=== PATIENT | female | born 1985 | race Caucasian/White ===

== ENCOUNTER 2017-03-08 14:09 | Emergency (ER) | payer OTHER ==
[2017-03-08 14:30] VITALS: BP 126/80; PULSE 62; TEMP 98; BMI 20.7
[2017-03-08 14:31] LABS: URINE APPEARANCE Clear; URINE BILIRUBIN Negative (NEGATIVE); URINE GLUCOSE (UA) Negative (NEGATIVE); URINE KETONE Negative (NEGATIVE); URINE LEUK ESTERASE Negative (NEGATIVE); URINE NITRITE Negative (NEGATIVE); URINE PROTEIN Negative (NEGATIVE); URINE UROBILINOGEN 0.2 E.U/dl (0.2-1.0)
[2017-03-08] MEDS ORDERED: SULFAMETHOXAZOLE/TRIMETHOPRIM 800MG/160MG D.S. TABLET PO ONE (14:35)
[2017-03-08] MEDS ORDERED: FLUCONAZOLE 50 MG TABLET PO ONE (14:35)
[2017-03-08 14:37] LABS: URINE BLOOD 2+ (NEGATIVE); URINE COLOR YELLOW
[2017-03-08] MEDS ORDERED: FLUCONAZOLE 150 MG TABLET PO ONE (14:49)
[2017-03-08] MEDS ORDERED: SULFAMETHOXAZOLE/TRIMETHOPRIM 800MG/160MG D.S. TABLET ONE (14:50)
--- NOTE | 2017-03-08 14:59 | PDOC ---
History of Present Illness - General Chief Complaint: Urinary Problem Stated Complaint: UTI Time Seen by Provider: 03/08/17 14:11 History Source: Patient Exam Limitations: No Limitations - History of Present Illness Travel History: No Past History - Past Medical History Allergies/Adverse Reactions: Allergies Allergy/AdvReac Type Severity Reaction Status Date / Time No Known Allergies Allergy Verified 03/08/17 14:17 Home Medications: Ambulatory Orders Albuterol Sulfate Inhaler - [Ventolin HFA Inhaler -] 2 puff IH Q4H #1 inhaler NS 03/08/17 Albuterol Sulfate Inhaler - [Ventolin Hfa Inhaler -] 2 inh PO Q6H PRN 03/08/17 Ciprofloxacin HCl [Cipro] 500 mg PO BID 03/08/17 Fluconazole [Diflucan -] 100 mg PO ONCE #2 tablet 03/08/17 Phenazopyridine HCl [Pyridium] 200 mg PO TID PRN 03/08/17 Sulfamethoxazole/Trimethoprim [Bactrim Ds Tablet] 1 each PO BID #14 tablet 03/08 Other medical history: SCOLIOSIS - Psycho/Social/Smoking Cessation Hx Anxiety: No Suicidal Ideation: No Smoking History: Never smoked Hx Alcohol Use: Yes (RARE) Drug/Substance Use Hx: No Substance Use Type: None *Physical Exam - Vital Signs Last Vital Signs Temp Pulse Resp BP Pulse Ox 98.0 F 62 15 126/80 100 03/08/17 14:10 03/08/17 14:10 03/08/17 14:10 03/08/17 14:10 03/08/17 14:10 ED Treatment Course - ADDITIONAL ORDERS Additional order review: Laboratory Results 03/08/17 14:00 Urine Color Yellow Urine Appearance Clear Urine pH 6.0 Ur Specific [place] <= 1.005 Urine Protein Negative Urine Glucose (UA) Negative Urine Ketones Negative Urine Blood 2+ H Urine Nitrite Negative Urine Bilirubin Negative Urine Urobilinogen 0.2 e.u/dl Ur Leukocyte Esterase Negative Urine HCG, Qual Negative Medical Decision Making - Medical Decision Making 03/08/17 14:46 31 yo F with h/o frequent uti, last 5 yrs ago, here wtih c/o dysuria, frequency , urgency. started one week ago, has been taking cipro no relief and pyridium. no f/c no n/v has chronic back pain . no changes. also c;o vaginal itching since initiating abx, is currently menstruating. not . on exam awake alert well appearing. cardiac and lung exam normal. abd soft NT no CVA tenderness. differential: vaginal candidiasis, uti . will switch pt abx to bactrim. cultures sent. no sx of pyelo or sepsis currently afebrile not tachycardic. will r/o . treat for yeast with diflucan. 03/08/17 15:02 cultures sent. pt switched to urine . *DC/Admit/Observation/Transfer Diagnosis at time of Disposition: Vaginal candidiasis - Discharge Dispostion Disposition: HOME Condition at time of disposition: Good Admit: No - Prescriptions Prescriptions: Sulfamethoxazole/Trimethoprim [Bactrim Ds Tablet] 1 each PO BID #14 tablet Fluconazole [Diflucan -] 100 mg PO ONCE #2 tablet - Referrals Referrals: Jim Wade MD [Staff Physician] - - Patient Instructions Printed Discharge Instructions: Urinary Tract Infection, Fluconazole Additional Instructions: take bactrim twice daily x 7 days. discontinue ciprofloxacin. you can take a repeat dose of diflucan to help vaginal itching in 2 days if todays medicine does not help. follow up with your primary doctor. return for any fever, chills vomiting or any concerns.
--- NOTE | 2017-03-08 15:05 | PDOC ---
*Physical Exam - Vital Signs Last Vital Signs Temp Pulse Resp BP Pulse Ox 98.0 F 62 15 126/80 100 03/08/17 14:10 03/08/17 14:10 03/08/17 14:10 03/08/17 14:10 03/08/17 14:10 <Leatha Mtz - Last Filed: 03/08/17 15:04> - Vital Signs Last Vital Signs Temp Pulse Resp BP Pulse Ox 98.0 F 62 15 126/80 100 03/08/17 14:10 03/08/17 14:10 03/08/17 14:10 03/08/17 14:10 03/08/17 14:10 - Physical Exam Comments: 03/08/17 15:05 The patient is a 31 year old female with a significant past medical history of recurrent UTIs (last one several years ago) and chronic back pain who presents to the ED with complaints of dysuria for several days. The patient reports dysuria, vaginal discharge, and vaginal itching. She also reports lower back pain and nausea associated with present symptoms. She states she typically gets similar symptoms 3-4 times a year, and drinks water and cranberry juice with relief. Patient reports she is on Cipro for a week with no improvement. Patient is currently on her menstrual period. Denies fevers or chills. Denies abdominal pain, vomiting, or diarrhea. Denies chest pain or shortness of breath. Denies any other symptoms. GENERAL/CONSTITUTIONAL: No fever or chills. No weakness. HEAD, EYES, EARS, NOSE AND THROAT: No change in vision. No ear pain or discharge. No sore throat. CARDIOVASCULAR: No chest pain or shortness of breath. RESPIRATORY: No cough, wheezing, or hemoptysis. GASTROINTESTINAL: + nausea. No vomiting, diarrhea or constipation. GENITOURINARY:+ dysuria, vaginal discharge, vaginal itching. No frequency. MUSCULOSKELETAL:+ back pain. No joint or muscle swelling or pain. No neck pain. SKIN: No rash NEUROLOGIC: No headache, vertigo, loss of consciousness, or change in strength/ sensation. ENDOCRINE: No increased thirst. No abnormal weight change. HEMATOLOGIC/LYMPHATIC: No anemia, easy bleeding, or history of blood clots. ALLERGIC/IMMUNOLOGIC: No hives or skin allergy. GENERAL: Awake, alert, and fully oriented, in no acute distress HEAD: No signs of trauma EYES: PERRLA, EOMI, sclera anicteric, conjunctiva clear ENT: Auricles normal inspection, hearing grossly normal, nares patent, oropharynx clear without exudates. Moist mucosa NECK: Normal ROM, supple, no lymphadenopathy, JVD, or masses LUNGS: Breath sounds equal, clear to auscultation bilaterally. No wheezes, and no crackles HEART: Regular rate and rhythm, normal S1 and S2, no murmurs, rubs or gallops ABDOMEN: Soft, nontender, normoactive bowel sounds. No guarding, no rebound. No masses MUSCULOSKELETAL: No CVA tenderness. EXTREMITIES: Normal range of motion, no edema. No clubbing or cyanosis. No cords, erythema, or tenderness NEUROLOGICAL: Normal speech SKIN: Warm, Dry, normal turgor, no rashes or lesions noted. <Nehemias Farfan - Last Filed: 03/08/17 15:05> ED Treatment Course - ADDITIONAL ORDERS Additional order review: Laboratory Results 03/08/17 14:00 Urine Color Yellow Urine Appearance Clear Urine pH 6.0 Ur Specific [place] <= 1.005 Urine Protein Negative Urine Glucose (UA) Negative Urine Ketones Negative Urine Blood 2+ H Urine Nitrite Negative Urine Bilirubin Negative Urine Urobilinogen 0.2 e.u/dl Ur Leukocyte Esterase Negative Urine HCG, Qual Negative - Medications Given in the ED: ED Medications Discontinued Medications Generic Name Dose Route Start Last Admin Trade Name Freq PRN Reason Stop Dose Admin Fluconazole 150 mg 03/08/17 14:35 03/08/17 14:53 Diflucan - PO 03/08/17 14:36 150 mg ONCE ONE Administration Trimethoprim/Sulfamethoxazole 1 each 03/08/17 14:35 03/08/17 14:53 Bactrim Ds - PO 03/08/17 14:36 1 each ONCE ONE Administration <Juliocesar Mtza - Last Filed: 03/08/17 15:04> - ADDITIONAL ORDERS Additional order review: Laboratory Results 03/08/17 14:00 Urine Color Yellow Urine Appearance Clear Urine pH 6.0 Ur Specific [place] <= 1.005 Urine Protein Negative Urine Glucose (UA) Negative Urine Ketones Negative Urine Blood 2+ H Urine Nitrite Negative Urine Bilirubin Negative Urine Urobilinogen 0.2 e.u/dl Ur Leukocyte Esterase Negative Urine HCG, Qual Negative - Medications Given in the ED: ED Medications Discontinued Medications Generic Name Dose Route Start Last Admin Trade Name Sarai PRN Reason Stop Dose Admin Fluconazole 150 mg 03/08/17 14:35 03/08/17 14:53 Diflucan - PO 03/08/17 14:36 150 mg ONCE ONE Administration Trimethoprim/Sulfamethoxazole 1 each 03/08/17 14:35 03/08/17 14:53 Bactrim Ds - PO 03/08/17 14:36 1 each ONCE ONE Administration <Nehemias Farfan - Last Filed: 03/08/17 15:05> Medical Decision Making - Medical Decision Making 03/08/17 15:04 please SEE HPI here and PE for origianl note <Leatha Mtz - Last Filed: 03/08/17 15:04> *DC/Admit/Observation/Transfer <Leatha Mtz - Last Filed: 03/08/17 15:04> - Attestations Scribe Attestion: 03/08/17 15:05 Documentation prepared by Nehemias Farfan, acting as medical insurance claims specialist for Leatha Mtz MD <Nehemias Farfan - Last Filed: 03/08/17 15:05> Diagnosis at time of Disposition: Vaginal candidiasis - Discharge Dispostion Condition at time of disposition: Good - Prescriptions Prescriptions: Sulfamethoxazole/Trimethoprim [Bactrim Ds Tablet] 1 each PO BID #14 tablet Fluconazole [Diflucan -] 100 mg PO ONCE #2 tablet Albuterol Sulfate Inhaler - [Ventolin HFA Inhaler -] 2 puff IH Q4H #1 inhaler NS - Referrals Referrals: Jim Wade MD [Staff Physician] - - Patient Instructions Printed Discharge Instructions: Urinary Tract Infection, Fluconazole Additional Instructions: take bactrim twice daily x 7 days. discontinue ciprofloxacin. you can take a repeat dose of diflucan to help vaginal itching in 2 days if todays medicine does not help. follow up with your primary doctor. return for any fever, chills vomiting or any concerns. - Post Discharge Activity
[2017-03-08 18:15] LABS: URINE WBC 0-2 (3-5)
== END 2017-03-08 15:08 | disposition home or self-care (01) ==
LOC: FER 14:09
DX: B37.3 Candidiasis of vulva and vagina (principal); M41.9 Scoliosis, unspecified
CPT/HCPCS: 81003; 81015; 84703; 87086; 99282-25